=== PATIENT | male | born 1960 | race Caucasian/White ===

== ENCOUNTER 2016-08-11 07:48 | Emergency (ER) | payer MEDICAID ==
[2016-08-11] MEDS ORDERED: Diphtheria,Pertussis(Acell),Tetanus Vaccine 0.5 ML Syringe IM ONE (08:05)
[2016-08-11] MEDS ORDERED: Bacitracin Oint 1 GM U/D Packet TOP ONE (08:05)
[2016-08-11] MEDS ORDERED: Sulfamethoxazole/Trimethoprim 800-160 MG Tab PO ONE (08:05)
[2016-08-11] MEDS ORDERED: Ketorolac 60 MG/2 ML SDV IM ONE (08:11)
--- NOTE | 2016-08-11 08:11 | EDM.PDOC ---
ED HPI GENERAL MEDICAL PROBLEM - General Chief Complaint: Skin Complaint Stated Complaint: LEFT HAND SPIDER BITE Time Seen by Provider: 08/11/16 07:57 - History of Present Illness INITIAL COMMENTS - FREE TEXT/NARRATIVE: HISTORY AND PHYSICAL: History of present illness: The patient is a 55-year-old male who states no medical history and no systemic complaints but says that he was bitten by a "spider" or some other insect 4 days ago. He noticed a blister which she popped and he says a lot of pus came out. Since that time the area has been incredibly reddened and discomforting. He has not noticed streaking up his arm and does have range of motion of all the digits and hand. He has no systemic complaints of fever chills and no compartment discomfort or swelling in the forearm or proximal left upper extremity. He is right-hand dominant. He is unsure of his last tetanus shot Review of systems: As per history of present illness and below otherwise all systems reviewed and negative. Past medical history: As per history of present illness and as reviewed below otherwise noncontributory. Surgical history: As per history of present illness and as reviewed below otherwise noncontributory. Social history: No reported history of drug or alcohol abuse. Family history: As per history of present illness and as reviewed below otherwise noncontributory. Physical exam: Gen.: Well-developed thin man who is nontoxic and speaking clearly in the ED. Vital signs been reviewed by me HEENT: Atraumatic, normocephalic, negative for conjunctival pallor or scleral icterus, mucous membranes moist, throat clear, neck supple, nontender, trachea midline. Lungs: Clear to auscultation, breath sounds equal bilaterally, chest nontender. Heart: S1S2, regular rate and rhythm no overt murmurs Abdomen: Deferred Pelvis: Deferred Genitourinary: Deferred. Rectal: Deferred. Extremities: Atraumatic with full range of motion of all extremities with the exception of the dorsal aspect of the left hand. At the dorsal aspect of the left hand near the anatomic snuffbox there is a quarter sized area of an open wound which has scant amount of fluid draining from it but there is no fluctuance or crepitus. There is some ill-defined surrounding erythema but there is no streaking up the arm. The patient has full range of motion of all the digits including the thumb and the forearm compartment is nontender. Neurovascular is intact and the remainder of the hand is without any erythema or lesions. The legs are, negative for cords or calf pain. Neurovascular unremarkable. Neuro: Awake, alert, oriented. Cranial nerves II through XII unremarkable. Cerebellum unremarkable. Motor and sensory unremarkable throughout. Exam nonfocal. Skin: Aside from the left hand there is no evidence of any rashes or lesions overtly seen and turgor is normal Diagnostics: Left hand x-ray Therapeutics: Wound care,Tdap, Bactrim Impression: Left hand insect bite cellulitis Definitive disposition and diagnosis as appropriate pending reevaluation and review of above. Left Hand Pain Score (Numeric/FACES): 9 - Related Data Allergies Allergy/AdvReac Type Severity Reaction Status Date / Time No Known Allergies Allergy Verified 08/11/16 08:04 Home Meds: Home Meds . [No Known Home Meds] 08/11/16 [History] ED ROS GENERAL - Review of Systems Review Of Systems: ROS reveals no pertinent complaints other than HPI. ED EXAM, SKIN/RASH Exam: See Below (See dictation) Course - Vital Signs Last Recorded V/S: Last Vital Signs Temp 36.5 C 08/11/16 08:01 Pulse 68 08/11/16 08:01 Resp BP 116/74 08/11/16 08:01 Pulse Ox - Orders/Labs/Meds Orders: Active Orders 24 hr Category Date Time Status Communication Order [RC] STAT Care 08/11/16 08:05 Active Vaccines to be Administered [RC] PER UNIT ROUTINE Care 08/11/16 08:05 Active Meds: Medications Discontinued Medications Generic Name Dose Route Start Last Admin Trade Name Marilyn PRN Reason Stop Dose Admin Bacitracin 1 dose 08/11/16 08:05 08/11/16 08:16 Bacitracin Oint 1 Gm TOP 08/11/16 08:06 1 dose ONETIME ONE Administration Diphtheria/Tetanus/Acell Pertussis 0.5 ml 08/11/16 08:05 08/11/16 08:17 Adacel IM 08/11/16 08:06 0.5 ml .ONCE ONE Administration Ketorolac Tromethamine 60 mg 08/11/16 08:11 08/11/16 08:17 Toradol IM 08/11/16 08:12 60 mg ONETIME ONE Administration Trimethoprim/Sulfamethoxazole 1 tab 08/11/16 08:05 08/11/16 08:16 Septra Ds PO 08/11/16 08:06 1 tab ONETIME ONE Administration Departure - Departure Time of Disposition: 08:58 Disposition: Home, Self-Care 01 Condition: Good Clinical Impression: Cellulitis Qualifiers: Site of cellulitis: extremity Site of cellulitis of extremity: upper extremity Laterality: left Qualified Code(s): L03.114 - Cellulitis of left upper limb Insect bite of left hand with infection Qualifiers: Encounter type: initial encounter Qualified Code(s): S60.562A - Insect bite ( nonvenomous) of left hand, initial encounter - Discharge Information Instructions: Cellulitis, Adult, Insect Bite, [id number] Referrals: PCP,None [Primary Care Provider] - Forms: ED Department Discharge Additional Instructions: The following information is given to patients seen in the emergency department who are being discharged to home. This information is to outline your options for follow-up care. We provide all patients seen in our emergency department with a follow-up referral. The need for follow-up, as well as the timing and circumstances, are variable depending upon the specifics of your emergency department visit. If you don't have a primary care physician on staff, we will provide you with a referral. We always advise you to contact your personal physician following an emergency department visit to inform them of the circumstance of the visit and for follow-up with them and/or the need for any referrals to a consulting specialist. The emergency department will also refer you to a specialist when appropriate. This referral assures that you have the opportunity for followup care with a specialist. All of these measure are taken in an effort to provide you with optimal care, which includes your followup. Under all circumstances we always encourage you to contact your private physician who remains a resource for coordinating your care. When calling for followup care, please make the office aware that this follow-up is from your recent emergency room visit. If for any reason you are refused follow-up, please contact the [facility] emergency department at and ask to speak to the emergency department charge nurse. [facility] Primary care- Internal Medicine and Family [address] [address] [facility] Specialty clinic-Plastic Surgery and Hand Surgery Professional [address] [address] Please cleanse the area with mild soap and water do not use alcohol or peroxide. Apply antibiotic ointment after cleansing. Please take all antibiotics as prescribed pain medications as needed or [id number] meds such as Tylenol or Motrin. Please follow-up with primary care and definitely call our hand specialists for follow-up in her clinic. Return to ER as needed and as discussed - My Orders Last 24 Hours: My Active Orders 08/11/16 08:05 Communication Order [RC] STAT Vaccines to be Administered [RC] PER UNIT ROUTINE - Assessment/Plan Last 24 Hours: My Active Orders 08/11/16 08:05 Communication Order [RC] STAT Vaccines to be Administered [RC] PER UNIT ROUTINE
--- NOTE | 2016-08-11 08:56 | CR ---
EXAMINATION: Left hand HISTORY: Pain COMPARISON: None TECHNIQUE: 2 views FINDINGS/IMPRESSION: There is no acute osseous abnormality, dislocation, or fracture identified. Bon e mineralization and joint spaces appear normal.
[2016-08-11 09:07] VITALS: BP 109/68
== END 2016-08-11 09:05 | disposition home or self-care (01) ==
LOC: MW.ED 07:48
DX: S60.562A Insect bite (nonvenomous) of left hand, initial encounter (principal); L03.114 Cellulitis of left upper limb; Z23 Encounter for immunization; W57.XXXA Bitten or stung by nonvenomous insect and other nonvenomous arthropods, initial encounter
CPT/HCPCS: 73120; 90471; 90715; 96372; 99283; A9270; J1885